=== PATIENT | male | born 1975 | race Caucasian/White ===

== ENCOUNTER 2021-02-16 12:26 | Emergency (ER) | payer BC | END 2021-02-16 13:45 | disposition left against medical advice (07) | LOC: JD.ED 12:26 | DX: Z53.21 Procedure and treatment not carried out due to patient leaving prior to being seen by health care provider (principal) ==

== ENCOUNTER → 2021-02-18 | Day surgery (SDC) | payer BC ==
[~2021-02-18] MED LIST: Albuterol 0.083% 2.5 MG/3 ML Neb Soln NEB ONE; Lactated Ringers 1,000 ML IV SCH; Lidocaine 1%/Sod Bicarbonate in NS 8.4% 1 ML Syringe IDERM PRN; Midazolam 1 MG/ML 2 ML SDV ONE; Propofol 200 MG/20 ML SDV ONE; Sodium Chloride 0.9% 10 ML Syringe FLUSH PRN; fentaNYL 100 MCG/2 ML SDV ONE
--- NOTE | 2021-02-18 09:24 | PCM.PREANE ---
Preanesthetic Assessment - Procedure Proposed Procedure: Colonoscopy - Anesthesia/Transfusion/Family Hx Anesthesia History: Prior Anesthesia Without Reaction Family History of Anesthesia Reaction: No Transfusion History: No Prior Transfusion(s) Intubation History: Unknown - Review of Systems General: No Symptoms Pulmonary: No Symptoms Cardiovascular: No Symptoms (3) Gastrointestinal: No Symptoms Neurological: Numbness (N/T to fingers tips), Tingling Other: Reports: None - Physical Assessment NPO Status Date: 02/18/21 NPO Status Time: 04:30 Vital Signs: BP 140/81 HR 62 97% RA 97.0 18 Height: 1.78 m Weight: 153.5 kg ASA Class: 3 Mental Status: Alert & Oriented x3 Airway Class: Mallampati = 2 Dentition: Reports: Missing Tooth/Teeth, Caries Thyro-Mental Finger Breadths: 2 Mouth Opening Finger Breadths: 3 ROM/Head Extension: Full Lungs: Normal Respiratory Effort, Decreased Breath Sounds Cardiovascular: Regular Rate, Regular Rhythm, No Murmurs - Imaging/EKG Impressions: Chest xray 01/27/21: nothing acute - Allergies Allergies/Adverse Reactions: Allergies Allergy/AdvReac Type Severity Reaction Status Date / Time No Known Allergies Allergy Verified 02/17/21 19:18 - Blood Blood Available: No Product(s) Available: None - Acknowledgements Anesthesia Type Planned: MAC Pt an Appropriate Candidate for the Planned Anesthesia: Yes Alternatives and Risks of Anesthesia Discussed w Pt/Guardian: Yes Pt/Guardian Understands and Agrees with Anesthesia Plan: Yes PreAnesthesia Questionnaire HEENT History: Reports: None, Impaired Vision Cardiovascular History: Reports: Other (See Below) Other Cardiovascular History: chest pain, left bundle branch sid-block Respiratory History: Reports: Sleep Apnea, Other (See Below) Other Respiratory History: obestity hypoventilation syndrome Gastrointestinal History: Reports: GERD Genitourinary History: Reports: None 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: None Musculoskeletal History: Reports: Back Pain, Chronic, Neck Pain, Chronic, Os teoarthritis Neurological History: Reports: Seizure (Seizure when 18 years old, no seizure since), Other (See Below) Other Neuro History: tingling Psychiatric History: Reports: None Endocrine/Metabolic History: Reports: Obesity/BMI 30+ Hematologic History: Reports: None Immunologic History: Reports: None Oncologic (Cancer) History: Reports: None Dermatologic History: Reports: Other (See Below) Other Dermatologic History: fungal infection, tinea crusis - Infectious Disease History Infectious Disease History: Reports: None - Past Surgical History Head Surgeries/Procedures: Reports: None HEENT Surgical History: Reports: Naso-Sinus Surgery, Tonsillectomy Cardiovascular Surgical History: Reports: None Respiratory Surgical History: Reports: None GI Surgical History: Reports: None Male Surgical History: Reports: None Endocrine Surgical History: Other Endocrine Surgeries/Procedures: thyroid surgery Neurological Surgical History: Reports: None Musculoskeletal Surgical History: Reports: Other (See Below) (Ankle surgery right side) Oncologic Surgical History: Reports: None Dermatological Surgical History: Reports: None - SUBSTANCE USE Tobacco Use Status *Q: Current Some Day Tobacco User Tobacco Use Within Last Twelve Months: Cigarettes Second Hand Smoke Exposure: Yes Days Per Week of Alcohol Use: 7 Number of Drinks Per Day: 2 Total Drinks Per Week: 14 Recreational Drug Use History: No - HOME MEDS Home Medications: Home Meds Fluconazole [Diflucan] 200 mg PO Q48H 02/17/21 [History] Naproxen Sodium [Aleve] 220 mg PO BID PRN 02/17/21 [History] diphenhydrAMINE HCL [Unisom] 50 mg PO BEDTIME PRN 02/17/21 [History] - CURRENT (IN HOUSE) MEDS Current Meds: Current Medications Lactated Ringer's (Ringers, Lactated) 1,000 mls @ 125 mls/hr IV ASDIRECTED NABILA Stop: 02/18/21 23:00 Lidocaine/Sodium Bicarbonate (Lidocaine 1%/Sod Bicarbonate In Ns 8.4% 1 Ml Syringe) 0.25 ml IDERM ONETIME PRN PRN Reason: Prior to IV Start Stop: 02/18/21 18:00 Sodium Chloride (Sodium Chloride 0.9% 10 Ml Syringe) 10 ml FLUSH ASDIRECTED PRN PRN Reason: Keep Vein Open Stop: 02/18/21 18:00 Discontinued Medications Fentanyl (Fentanyl 100 Mcg/2 Ml Sdv) Confirm Administered Dose 100 mcg .ROUTE .STK-MED ONE Stop: 02/18/21 09:05 Propofol (Propofol 200 Mg/20 Ml Sdv) Confirm Administered Dose 400 mg .ROUTE .STK-MED ONE Stop: 02/18/21 09:05
--- NOTE | 2021-02-18 10:32 | PCM.PRNOTE ---
- Free Text/Narrative Note: Date: 02/18/2021 Procedure: diagnostic colonoscopy Indication: melena, hematochezia Endoscopist: All Delvalle MD Findings: excellent prep. Cecum reached. Two small polyps in descending colon. No diverticulosis or hemorrhoids. Detailed Report: The patient was taken to the endoscopy suite and placed in left lateral decubitus position. Timeout was performed and monitored anesthesia care was initiated. Digital rectal exam was unremarkable, though the finger was unable to be advanced very far due to patient habitus. The colonoscope was inserted and advanced all the way to the cecum with ease. The appendiceal orifice was visualized as well as the ileocecal valve. Prep was excellent. The scope was slowly withdrawn and mucosal surfaces carefully inspected. 2 subcentimeter sessile difficult to see polyps were identified approximately 35 to 40 cm from the anal verge. These were removed with jumbo forceps. The base of one of the polyps was fulgurated due to bleeding. No other pathology was noted. On retroflexion in the rectum, no abnormalities were appreciated. Air was suctioned from the distal colon and rectum prior to withdrawal of the scope. The patient tolerated the procedure well.
--- NOTE | 2021-02-18 10:42 | PCM48HPAN ---
Post Anesthesia Note - EVALUATION WITHIN 48HRS OF ANESTHETIC Vital Signs in Normal Range: Yes Patient Participated in Evaluation: Yes Respiratory Function Stable: Yes Airway Patent: Yes Cardiovascular Function Stable: Yes Hydration Status Stable: Yes Pain Control Satisfactory: Yes Nausea and Vomiting Control Satisfactory: Yes Mental Status Recovered: Yes Vital Signs: Last Vital Signs Temp 97.3 02/18/21 1036 Pulse 66 02/18/21 1036 Resp 12 02/18/21 1036 BP 147/89 02/18/21 1036 Pulse Ox 93% 02/18/21 1036
[2021-02-18 12:45] VITALS: BP 122/81; PULSE 63
== END | disposition home or self-care (01) ==
LOC: JD.SDS 09:00
PROVIDERS: ATTEND Surgery
DX: D12.4 Benign neoplasm of descending colon (principal); E66.2 Morbid (severe) obesity with alveolar hypoventilation; G47.33 Obstructive sleep apnea (adult) (pediatric); K21.9 Gastro-esophageal reflux disease without esophagitis; F17.210 Nicotine dependence, cigarettes, uncomplicated; Z79.899 Other long term (current) drug therapy; Z68.42 Body mass index [BMI] 45.0-49.9, adult
CPT/HCPCS: 45380; J2250; J2704; J3010; J7120; 00811

== ENCOUNTER 2025-05-10 06:48 | Day surgery (SDC) | payer BC ==
[~2025-05-10 06:48] MED LIST changes: -Albuterol 0.083% 2.5 MG/3 ML Neb Soln NEB ONE; -Lactated Ringers 1,000 ML IV SCH; -Lidocaine 1%/Sod Bicarbonate in NS 8.4% 1 ML Syringe IDERM PRN; -Midazolam 1 MG/ML 2 ML SDV ONE; +Sodium Chloride 0.9% 10 ML Syringe FLUSH SCH; -fentaNYL 100 MCG/2 ML SDV ONE
[2025-05-10] MEDS: Lactated Ringers 1,000 ML IV SCH (07:10)
[2025-05-10] MEDS ORDERED: Propofol 200 MG/20 ML SDV ONE (07:38)
[2025-05-10 08:48] VITALS: BP 113/85; PULSE 58
== END 2025-05-10 08:40 | disposition home or self-care (01) ==
LOC: JD.SDS 06:48
PROVIDERS: ATTEND Surgery
DX: Z12.11 Encounter for screening for malignant neoplasm of colon (principal); D12.5 Benign neoplasm of sigmoid colon; E78.00 Pure hypercholesterolemia, unspecified; I10 Essential (primary) hypertension; K21.9 Gastro-esophageal reflux disease without esophagitis; E11.9 Type 2 diabetes mellitus without complications; E66.9 Obesity, unspecified; Z68.37 Body mass index [BMI] 37.0-37.9, adult; G47.33 Obstructive sleep apnea (adult) (pediatric); Z87.891 Personal history of nicotine dependence; Z79.899 Other long term (current) drug therapy
CPT/HCPCS: 45380; 45385; J2704; J7120; 00811